=== PATIENT | male | born 1995 | race Caucasian/White ===

== ENCOUNTER 2017-04-11 13:37 | Emergency (ER) | payer OTHER ==
[~2017-04-11] VITALS: Ht 182.9 cm; Wt 86.2 kg
[2017-04-11] MEDS ORDERED: CLONIDINE HCL0.2 MG PO (14:32)
[2017-04-11] MEDS ORDERED: BUPROPION XL300 MG PO (14:32)
[2017-04-11] MEDS ORDERED: RANITIDINE HCL300 MG PO (14:33)
[2017-04-11] MEDS ORDERED: METHYLPHENIDATE27 MG PO (14:33)
[2017-04-11] MEDS ORDERED: OMEPRAZOLE20 MG PO (14:33)
[2017-04-11] MEDS ORDERED: SYNTHROID50 MCG PO (14:33)
[2017-04-11] MEDS ORDERED: VITAMIN D-32000 UNI1 PO (14:33)
[2017-04-11] MEDS ORDERED: ZIPRASIDONE HCL60 MG PO (14:34)
[2017-04-11] MEDS ORDERED: ANTACID ANTI-G355 ML PO (14:36)
[2017-04-11] MEDS ORDERED: ACETAMINOPHEN325 M1 PO (14:36)
[2017-04-11] MEDS ORDERED: 24HOUR ALLERGY10 MG PO (14:37)
[2017-04-11] MEDS ORDERED: CEPACOL SORE T1 EAC5 MM (14:37)
[2017-04-11] MEDS ORDERED: LOPERAMIDE2 MG PO (14:38)
[2017-04-11] MEDS ORDERED: IBUPROFEN200 M1 PO (14:38)
[2017-04-11] MEDS ORDERED: THERAFLU FLU &1 EAC1 PO (14:39)
== END 2017-04-11 15:05 | disposition home or self-care (01) ==
LOC: ED 13:37
DX: K62.5 Hemorrhage of anus and rectum (principal); F90.9 Attention-deficit hyperactivity disorder, unspecified type; Z79.899 Other long term (current) drug therapy
CPT/HCPCS: 80053; 85025; 85610; 99284

== ENCOUNTER 2017-10-11 14:12 | Emergency (ER) | payer OTHER ==
[~2017-10-11] VITALS: Ht 182.9 cm; Wt 129.3 kg
[~2017-10-11 14:12] MED LIST: 24HOUR ALLERGY10 MG PO; ACETAMINOPHEN325 M1 PO; ANTACID ANTI-G355 ML PO; BUPROPION XL300 MG PO; CEPACOL SORE T1 EAC5 MM; CLONIDINE HCL0.2 MG PO; IBUPROFEN200 M1 PO; LOPERAMIDE2 MG PO; METHYLPHENIDATE27 MG PO; OMEPRAZOLE20 MG PO; RANITIDINE HCL300 MG PO; SYNTHROID50 MCG PO; THERAFLU FLU &1 EAC1 PO; VITAMIN D-32000 UNI1 PO; ZIPRASIDONE HCL60 MG PO
[2017-10-11] MEDS ORDERED: ONDANSETRON ODT8 MG PO (19:09)
== END 2017-10-11 19:39 | disposition home or self-care (01) ==
LOC: ED 14:12
DX: A08.4 Viral intestinal infection, unspecified (principal); Z79.899 Other long term (current) drug therapy; Z98.890 Other specified postprocedural states
CPT/HCPCS: 74177; 80053; 85025; 96361; 96374; 99284; J2405; J7030; Q9967

== ENCOUNTER 2018-11-26 17:24 | Emergency (ER) | payer OTHER ==
[~2018-11-26] VITALS: Ht 185.4 cm; Wt 106.6 kg
[~2018-11-26 17:24] MED LIST changes: +ONDANSETRON ODT8 MG PO
--- OUTSIDE RECORDS SUMMARY | 2018-11-26 17:26 | XMS ---
PreManage Notification: JANNET WILKINS Security Retail Event Coordinator Events No recent Security Events currently on file CRITERIA MET - [facility] CARE PROVIDERS Tunde Gutierres Primary Care Current PHONE: Unknown emelyn Case or Business Intern Current PHONE: Unknown Kathrine [place] Harpreet Current Orthopedic Surgery \T\ Fracture Clinic PHONE: Unknown Teresa has no Care Guidelines for this patient. [place] VISIT COUNT (12 MO.) 1 [facility] TOTAL 1 NOTE: Visits indicate total known visits. ED/UCC VISIT TRACKING (12 MO.) 11/26/2018 17:24 NE[facility]I An OR TYPE: Emergency COMPLAINT: - CHEST PAIN/SOB INPATIENT VISIT TRACKING (12 MO.) No inpatient visits to display in this time frame [email or web address]
--- NOTE | 2018-11-27 07:27 | EKG ---
[facility] [address] [facility] [place], [place] [address] Signed Normal sinus rhythm Normal ECG Confirmed by MELLY SCHAEFER MD ([id number]) on 11/27/2018 7:27:06 AM Electronically Signed By: MELLY SCHAEFER MD 11/27/18 0727 PATIENT NAME: JANNET WILKINS Electrocardiogram DATE OF : [birth year] PHYSICIAN: MELLY SCHAEFER MD REPORT #: [id number] REPORT IS CONFIDENTIAL AND NOT TO BE RELEASED WITHOUT AUTHORIZATION
== END 2018-11-26 19:16 | disposition home or self-care (01) ==
LOC: ED 17:24
DX: R07.9 Chest pain, unspecified (principal); F90.9 Attention-deficit hyperactivity disorder, unspecified type; Z79.899 Other long term (current) drug therapy
CPT/HCPCS: 71045; 80053; 84484; 85025; 93005; 93010; 99285-25

== ENCOUNTER 2019-11-22 17:47 | Emergency (ER) | payer OTHER ==
[~2019-11-22] VITALS: Ht 185.4 cm; Wt 117.9 kg
--- OUTSIDE RECORDS SUMMARY | 2019-11-22 17:50 | XMS ---
PreManage Notification: JANNET WILKINS Security Recreation Clerk Events No recent Security Events currently on file CRITERIA MET - [facility] REYNA PELLETIER Nurse Practitioner: 11/28/2018-Current PHONE: [phone] Tunde Gutierres Primary Care Current PHONE: Unknown emelyn Case or Inside Horticultural Specialty Grower Current PHONE: Unknown Kathrine Mullins Current Orthopedic Surgery \T\ Fracture Clinic PHONE: Unknown Teresa has no Care Guidelines for this patient. Care History Medical/Surgical 11/28/2018 [facility] - Patient is currently established with [facility]. If patient is seen in the ED during business hours. Please contact CHWs at [facility]. Care Recommendation: This patient has had 5 or more Emergency Department visits in the last 12 months.\T\nbsp; Patient requires education on the scope and purpose of the ED as an acute care provider not a Primary Care Provider and should not be utilized for chronic conditions.\T\nbsp; These are guidelines and the provider should exercise clinical judgment when providing care. E.D. VISIT COUNT (12 MO.) 2 [facility]. TOTAL 2 NOTE: Visits indicate total known visits. ED/UCC VISIT TRACKING (12 MO.) 11/22/2019 17:47 NE[facility]I An OR TYPE: Emergency COMPLAINT: - FALL, LEFT SHOULDER PAIN 11/26/2018 17:24 NELLI An OR TYPE: Emergency COMPLAINT: - CHEST PAIN/SOB DIAGNOSES: - Other care home (current) drug therapy - Attention-deficit hyperactivity disorder, unspecified type - Chest pain, unspecified INPATIENT VISIT TRACKING (12 MO.) No inpatient visits to display in this time frame [email or web address]
== END 2019-11-22 21:20 | disposition home or self-care (01) ==
LOC: ED 17:47
DX: S42.145A Nondisplaced fracture of glenoid cavity of scapula, left shoulder, initial encounter for closed fracture (principal); S42.202A Unspecified fracture of upper end of left humerus, initial encounter for closed fracture; W01.198A Fall on same level from slipping, tripping and stumbling with subsequent striking against other object, initial encounter; F90.9 Attention-deficit hyperactivity disorder, unspecified type; Z79.899 Other long term (current) drug therapy
CPT/HCPCS: 73030; 73200; 99284-25

== ENCOUNTER 2020-05-17 15:38 | Emergency (ER) | payer OTHER ==
[~2020-05-17] VITALS: Ht 185.4 cm; Wt 117.9 kg
--- OUTSIDE RECORDS SUMMARY | 2020-05-17 15:40 | XMS ---
PreManage Notification: JANNET WILKINS Security Administrative Officer Events No recent Security Events currently on file CRITERIA MET - [facility] - Has Care Guidelines - PDMP CARE PROVIDERS CHILANGO PELLETIER Nurse Practitioner: Family 11/28/2018-Current PHONE: [phone] Teresa has no Care Guidelines for this patient. Care History Medical/Surgical 11/23/2019 [facility] Patient has follow up visit with Chilango Pelletier on 11/27/2019. 11/28/2018 [facility] - Patient is currently established with [facility]. If patient is seen in the ED during business hours. Please contact CHWs at [facility]. Care Recommendation: If this patient has had 5 or more Emergency Department visits in the last 12 months.\T\nbsp; Patient will require education on the scope and purpose of the ED as an acute care provider not a Primary Care Provider and should not be utilized for chronic conditions.\T\nbsp; These are guidelines and the provider should exercise clinical judgment when providing care. E.D. VISIT COUNT (12 MO.) [address] [facility] TOTAL 2 NOTE: Visits indicate total known visits. ED/UCC VISIT TRACKING (12 MO.) 05/17/2020 15:38 [facility] An OR TYPE: Emergency COMPLAINT: - CHEST PAIN, SIDE PAIN 11/22/2019 17:47 [facility] An OR TYPE: Emergency COMPLAINT: - FALL, LEFT SHOULDER PAIN DIAGNOSES: - Pain in left shoulder - Attention-deficit hyperactivity disorder, unspecified type - Unspecified fracture of upper end of left humerus, initial en - Nondisplaced fracture of glenoid cavity of scapula, left shou - Other residential (current) drug therapy - Fall on same level from slipping, tripping and stumbling with INPATIENT VISIT TRACKING (12 MO.) No inpatient visits to display in this time frame [email or web address]
--- NOTE | 2020-05-17 17:19 | EKG ---
[facility] [address] [facility] [place], [place] [address] Signed Normal sinus rhythm Nonspecific T wave abnormality Abnormal ECG When compared with ECG of 26-NOV-2018 17:30, No significant change was found Confirmed by MELLY SCHAEFER MD ([id number]) on 05/17/2020 5:19:32 PM Electronically Signed By: MELLY SCHAEFER MD 05/17/20 1719 PATIENT NAME: KIMJANNET MARTINEZ Electrocardiogram DATE OF : [birth year] PHYSICIAN: MELLY SCHAEFER MD REPORT #: [id number] REPORT IS CONFIDENTIAL AND NOT TO BE RELEASED WITHOUT AUTHORIZATION
--- NOTE | 2020-05-20 02:57 | PATH ---
[facility] [address] [facility] [place], [place] [address] Signed ORDERING PHYSICIAN: Abdirashid Velez MD PATIENT NAME: JANNET WILKINS GENDER: Shayan : 1995 SPECIMEN(S): No Source Given MOLECULAR PATHOLOGY RESULTS: SARS-CoV-2 Not Detected ADDITIONAL NOTES.: The Prospect Fusion SARS-CoV-2 Assay is a multiplex real-time PCR (RT-PCR) in vitro diagnostic test intended for the qualitative detection of RNA from SARS-CoV-2 from individuals who meet COVID-19 clinical and/or epidemiological criteria. In general, SARS-CoV-2 RNA can be detected during the acute phase of infection. Positive results indicate the presence of SARS-CoV-2 RNA. Clinical correlation with patient history and other diagnostic information is necessary to determine patient infection status. Positive results do not rule out bacterial infection or co-infection with other viruses. Negative results do not preclude SARS-CoV-2 infection and should not be used as the sole basis for patient management decisions. Negative results must be combined with other clinical observations, patient history, and epidemiological information. The Prospect Fusion SARS-CoV-2 Assay is not yet approved or cleared by the [place] FDA. When there are no FDA-approved or cleared tests available, and other criteria are met, FDA can make tests available under an emergency access mechanism called an Emergency Use Authorization (EUA). The EUA for this test is supported by the [place] of Health and Human Service's (HHS's) declaration that circumstances exist to justify the emergency use of in vitro diagnostics for the detection and/or diagnosis of the virus that causes COVID-19. This EUA will remain in effect for the duration of the COVID-19 declaration justifying emergency of IVDs, unless it is terminated or revoked by FDA, after which the test may no longer be used. The Prospect Fusion SARS-CoV-2 Assay is for use only under EUA in US laboratories certified under the Clinical Laboratory Improvement Amendments of 1988 (CLIA) to perform high complexity tests. [facility] is certified under CLIA to perform high complexity PATIENT NAME: JANNET WILKINS PATHOLOGY DATE OF : [birth year] REPORT #: [id number] PHYSICIAN: MARIANELA PATHOLOGY PCP: REYNA PELLETIER REPORT IS CONFIDENTIAL AND NOT TO BE RELEASED WITHOUT AUTHORIZATION [address] [address] Signed clinical laboratory testing. PERFORMING LABORATORY.: Molecular testing was performed by [facility] [place] [address] (Radiological Health Specialist: Henri Panda D.O.; CLIA#: [id number]) Diagnostician: System Interface Pathologist Electronically Signed 05/20/2020 Copies: ~ PATIENT NAME: JANNET WILKINS PATHOLOGY DATE OF : [birth year] REPORT #: [id number] PHYSICIAN: MARIANELA BARNES PCP: REYNA PELLETIER REPORT IS CONFIDENTIAL AND NOT TO BE RELEASED WITHOUT AUTHORIZATION
== END 2020-05-17 17:34 | disposition home or self-care (01) ==
LOC: ED 15:38
DX: M79.10 Myalgia, unspecified site (principal); F90.9 Attention-deficit hyperactivity disorder, unspecified type; F17.200 Nicotine dependence, unspecified, uncomplicated; Z79.899 Other long term (current) drug therapy
CPT/HCPCS: 81001; 93005; 93010; 99284-25; C9803

== ENCOUNTER 2020-08-31 16:31 | Emergency (ER) | payer OTHER ==
[~2020-08-31] VITALS: Ht 185.4 cm; Wt 108.9 kg
[~2020-08-31 16:31] MED LIST changes: +CATAPRES0.1 MG PO; -CLONIDINE HCL0.2 MG PO
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
[2020-08-31] MEDS ORDERED: LISINOPRIL10 MG PO (16:42)
[2020-08-31] MEDS ORDERED: VITAMIN D21250 MCG PO (16:44)
[2020-08-31] MEDS ORDERED: BUPROPION XL300 MG PO (17:32)
[2020-08-31] MEDS ORDERED: TRAZODONE HCL50 MG PO (17:35)
[2020-08-31] MEDS ORDERED: ZIPRASIDONE HCL80 MG PO (17:37)
[2020-08-31] MEDS ORDERED: VITAMIN D350 MC3 PO (17:37)
== END 2020-08-31 19:31 | disposition home or self-care (01) ==
LOC: ED 16:31
DX: S16.1XXA Strain of muscle, fascia and tendon at neck level, initial encounter (principal); S76.911A Strain of unspecified muscles, fascia and tendons at thigh level, right thigh, initial encounter; F90.9 Attention-deficit hyperactivity disorder, unspecified type; F17.200 Nicotine dependence, unspecified, uncomplicated; Z79.899 Other long term (current) drug therapy; V47.6XXA Car passenger injured in collision with fixed or stationary object in traffic accident, initial encounter
CPT/HCPCS: 70450; 71045; 72125; 72170; 73552; 80053; 83605; 83690; 85025; 85610; 85730; 86850; 86900; 86901; 96374; 96375; 99284-25; J2405; J3010; J7030

== ENCOUNTER 2021-09-05 17:33 | Emergency (ER) | payer OTHER ==
[~2021-09-05] VITALS: Ht 185.4 cm; Wt 117.9 kg
[~2021-09-05 17:33] MED LIST changes: +LISINOPRIL10 MG PO; +TRAZODONE HCL50 MG PO; +VITAMIN D21250 MCG PO; +VITAMIN D350 MC3 PO; +ZIPRASIDONE HCL80 MG PO
--- OUTSIDE RECORDS SUMMARY | 2021-09-05 17:36 | XMS ---
PreManage Notification: JANNET WILKINS Security Certified Procedural Coder Events No recent Security Events currently on file CRITERIA MET - PDMP - [facility] - Has Care Guidelines CARE PROVIDERS CHILANGO PELLETIER Nurse Practitioner: Family 11/28/2018-Current PHONE: Unknown Teresa has no Care Guidelines for this patient. Care History Medical/Surgical 05/20/2020 [facility] Patient was seen in clinic by Leda Mercer and then escorted to ED with pain and shortness of breath.\T\nbsp; Patient agreed to contact PCP for follow up if needed. 11/23/2019 [facility] Patient has follow up visit with Chilango Pelletier on 11/27/2019. 11/28/2018 [facility] - Patient is currently established with [facility]. If patient is seen in the ED during business hours. Please contact CHWs at [facility]. Care Recommendation: If this patient has [...] providing care. E.D. VISIT COUNT (12 MO.) 1 NE[facility] TOTAL 1 NOTE: Visits indicate total known visits. ED/UCC VISIT TRACKING (12 MO.) 09/05/2021 17:34 NELLI An [place] TYPE: Emergency COMPLAINT: - VOMITING UP BLOOD INPATIENT VISIT TRACKING (12 MO.) No inpatient visits to display in this time frame [email or web address]
[2021-09-05] MEDS ORDERED: ZOFRAN4 MG PO (19:28)
== END 2021-09-05 19:49 | disposition home or self-care (01) ==
LOC: ED 17:33
DX: K29.70 Gastritis, unspecified, without bleeding (principal); F17.200 Nicotine dependence, unspecified, uncomplicated; Z79.899 Other long term (current) drug therapy
CPT/HCPCS: 80053; 83735; 85025; 96374; 99284-25; A9270; C9113

== ENCOUNTER 2022-12-15 12:08 | Emergency (ER) | payer OTHER ==
[~2022-12-15] VITALS: Ht 185.4 cm; Wt 95.2 kg
[~2022-12-15 12:08] MED LIST changes: +ZOFRAN4 MG PO
--- OUTSIDE RECORDS SUMMARY | 2022-12-15 12:10 | XMS ---
PreManage Notification: JANNET WILKINS Security Sports Analyst Events No recent Security Events currently on file CRITERIA MET - [facility] CARE PROVIDERS -[place]- Dentist: Sewer Pipe Sorter [facility] PHONE: [phone] REYNA PELLETIER Nurse Practitioner: 11/28/2018-Current PHONE: Unknown RAMON ALVARADO Nurse Practitioner: 09/08/2021-Current PHONE: [phone] Teresa has no Care Guidelines for this patient. Care History Medical/Surgical 05/20/2020 [facility] Patient was seen in clinic by Leda Mercer and then escorted to ED with pain and shortness of breath.\T\nbsp; Patient agreed to contact PCP for follow up if needed. 11/23/2019 [facility] Patient has follow up visit with Reyna Pelletier on 11/27/2019. 11/28/2018 [facility] - Patient is currently established with [facility]. If patient is seen in the ED during business hours. Please contact CHWs at [facility]. Care Recommendation: If this patient has [...] care. E.D. VISIT COUNT (12 MO.) 1 [facility]. TOTAL 1 NOTE: Visits indicate total known visits. ED/UCC VISIT TRACKING (12 MO.) 12/15/2022 12:08 [facility] [place] TYPE: Emergency COMPLAINT: - R SHOULDER PAIN INPATIENT VISIT TRACKING (12 MO.) No inpatient visits to display in this time frame [email or web address]
[2022-12-15] MEDS ORDERED: NAPROSYN500 MG PO (13:32)
== END 2022-12-15 13:59 | disposition home or self-care (01) ==
LOC: ED 12:08
DX: S43.401A Unspecified sprain of right shoulder joint, initial encounter (principal); M25.811 Other specified joint disorders, right shoulder; F17.200 Nicotine dependence, unspecified, uncomplicated; W01.0XXA Fall on same level from slipping, tripping and stumbling without subsequent striking against object, initial encounter
CPT/HCPCS: 73030; 73060; 73080; 99283-25